=== PATIENT | male | born 1990 | race Caucasian/White ===

== ENCOUNTER 2024-06-24 18:09 | Emergency (ER) | payer SELFPAY ==
[~2024-06-24] VITALS: Ht 167.6 cm; Wt 74.8 kg
[2024-06-24 18:34] VITALS: TEMP 36.8; O2SAT 100
[2024-06-24 19:57] VITALS: BP 123/76; PULSE 91; RESP 16
[2024-06-24] MEDS: KETOROLAC 15MG/ML VIAL IM ONE (19:57)
[2024-06-24] MEDS ORDERED: ACET-2708 MT (23:30)
[2024-06-24] MEDS ORDERED: NAPR-681 MT (23:30)
== END 2024-06-25 00:24 | disposition home or self-care (01) ==
LOC: EDSEX 18:18 → ER 18:18
DX: S82.51XA Displaced fracture of medial malleolus of right tibia, initial encounter for closed fracture (principal); Z98.890 Other specified postprocedural states; Z79.1 Long term (current) use of non-steroidal anti-inflammatories (NSAID); W11.XXXA Fall on and from ladder, initial encounter; Y93.89 Activity, other specified; Y92.89 Other specified places as the place of occurrence of the external cause; Y99.8 Other external cause status
CPT/HCPCS: 73610; 73630; 29515; 96372; 99284; J1885; Z7610